=== PATIENT | female | born 1960 | race Two or more races ===

== ENCOUNTER 2022-03-16 08:27 | Outpatient (REF) | payer MEDICAID, SELFPAY ==
[2022-03-16 11:04] LABS: Alanine Aminotransferase 24 U/L (0-31); Albumin Level 4.3 g/dL (3.5-5.0); Alkaline Phosphatase 69 U/L (39-117); Anion Gap 11 (12-20); Aspartate Amino Transferase 27 U/L (5-31); Bilirubin Total 0.6 mg/dL (0.0-1.0); Blood Urea Nitrogen 13 mg/dL (9-16); Calcium 9.9 mg/dL (8.4-10.2); Carbon Dioxide 28 mmol/L (22-29); Chloride 106 mmol/L (96-108); Estimated Glomerular Filt Rate > 60; Glucose Random 93 mg/dL (60-115); Potassium 5.2 mmol/L (3.3-5.1); Sodium 140 mmol/L (135-145); Total Protein 7.4 g/dL (6.5-8.0)
[2022-03-16 11:22] LABS: HBS Num1 1.57 mIU/mL (0-7.99); HBc Num1 0.17 S/CO (0.00-0.79); HBsAGNum1 0.23 S/CO (0.00-0.99); Hepatitis A Antibody IgM 0.18 Index (0-0.79); Hepatitis B Core Antibody Nonreactive (Nonreactive); Hepatitis B Surface Antigen Negative (Negative); ~Hepatitis A Antibody IgM Nonreactive (Nonreactive); ~Hepatitis B Surface Antibody NONREACTIVE (Nonreactive); ~Hepatitis C Antibody Nonreactive (Nonreactive)
[2022-03-16 12:10] LABS: Creatinine Urine 24.04 mg/dL; Microalbumin Urine < 5.0 mg/L
[2022-03-23 12:52] LABS: Anti DNA DS Antibody 3 IU/mL; Antibody to SS-A Antigen 1.0 POS AI (<1.0 NEG); Antibody to SS-B Antigen <1.0 NEG AI (<1.0 NEG); SM/Ribonucleoprotein Ab <1.0 NEG AI (<1.0 NEG); Smith Protein <1.0 NEG AI (<1.0 NEG)
== END 2022-03-16 08:28 | disposition home or self-care (01) ==
LOC: HO.LAB 08:27
PROVIDERS: PCP Family Medicine; Visit Provider Internal Medicine Rheumatology
DX: H04.129 Dry eye syndrome of unspecified lacrimal gland (principal); M25.50 Pain in unspecified joint; R74.01 Elevation of levels of liver transaminase levels; R76.8 Other specified abnormal immunological findings in serum
CPT/HCPCS: 36415; 80053; 82043; 86225; 86235; 86704; 86706; 86709; 86803; 87340; 99202